=== PATIENT | male | born 1990 | race Caucasian/White ===

== ENCOUNTER 2020-05-31 09:05 | Emergency (ER) | payer OTHER, SELFPAY ==
--- NOTE | ~2020-05-31 | US_ITS ---
EXAMINATION: US scrotum doppler DATE: 05/31/2020 10:17 INDICATION: Scrotal pain and swelling TECHNIQUE: Testicular sonogram utilizing grayscale and Doppler COMPARISON: None. FINDINGS: The right testis measures 4.4 x 2.4 x 2.7 cm. The left testis measures 4.1 x 2.3 x 3.2 cm. Symmetric normal grayscale appearance to both testes. There is normal vascular flow to both testes. The right e pididymis is normal with normal vascular flow. The left epididymis is enlarged with heterogeneous dec reased echogenicity and increased vascular flow on color Doppler consistent with epididymitis. There is no varicocele or hydrocele. IMPRESSION: 1. Edematous and hyperemic left epididymis consistent with epididymitis. Reviewed, dictated and finalized at location A. [employer]
[2020-05-31 09:12] VITALS: BP 148/85; PULSE 62; RESP 14; TEMP 36.3; O2SAT 99
--- NOTE | 2020-05-31 09:21 | ED.MALEGU ---
HPI - Male Genitourinary General Chief complaint: Urogenital-Male Stated complaint: SCROTAL SWELLING Time Seen by Provider: 05/31/20 09:18 History of Present Illness HPI Narrative: Left testicle pain and swelling for the past 2 days. Moderate intensity. No change with position. No hematuria, dysuria. Seen at urgent care today and transferred here for further evaluation. Related Data Allergies Allergy/AdvReac Type Severity Reaction Status Date / Time No Known Allergies Allergy Verified 05/31/20 10:56 Review of Systems Review of Systems: All systems reviewed & are unremarkable except as noted in HPI and below Constitutional: Constitutional: Denies chills and Denies fever(s) Cardiovascular: Cardiovascular: Denies chest pain Respiratory: Respiratory: Denies dyspnea Gastrointestinal: Gastrointestinal: Denies abdominal pain, Denies nausea and Denies vomiting Genitourinary: Genitourinary: Denies hematuria, Denies genital lesions, Denies dysuria, Denies penile discharge, Reports testicular pain and Denies urinary frequency Musculoskeletal: Musculoskeletal: Denies back pain Neurologic: Denies numbness and Denies weakness [facility] Past Medical History Medical History (Updated 05/31/20 @ 17:46 by Jose Rafael Kennedy MD) Healthy adult male Social History Social History (Updated 05/31/20 @ 17:46 by Jose Rafael Kennedy MD) Smoking status: Never smoker Exam Const: General: healthy appearing, no acute distress and alert Orientation/consciousness: patient oriented x3 HENMT: Head: normal to inspection Neck: Neck: normal visual inspection and no lymphadenopathy Chest: Chest palpation & inspection: no tenderness Resp: Effort & Inspection: normal respiratory effort Auscultation: clear to auscultation bilaterally, no rales, no rhonchi and no wheezes Cardio: Jugular venous distension: no JVD Rate: regular rate Rhythm: regular rhythm Heart sounds: no murmurs GI: Inspection: non-distended GI Palp: Yes Soft to palpation and No Tenderness to palpation present (GI) : Penis: Yes normal penis Scrotum: scrotal swelling on the left and localized Testes: epididymal tenderness on the left Skin: General skin exam: normal color Neuro: General: patient oriented x3 and moves all extremities Speech: normal speech Extrem: General: no edema Psych: Appearance: well kempt Affect: normal affect Course Vital Signs Vital signs: Vital Signs Temperature 36.3 C L 05/31/20 09:12 Pulse Rate 62 05/31/20 09:12 Respiratory Rate 14 05/31/20 09:12 Blood Pressure 148/85 H 05/31/20 09:12 Pulse Oximetry 99 05/31/20 09:12 Temperature 36.3 C L 05/31/20 09:12 Pulse Rate 80 05/31/20 11:30 Respiratory Rate 12 05/31/20 11:30 Blood Pressure 134/70 05/31/20 11:30 Pulse Oximetry 99 05/31/20 11:30 MDM - Male Genitourinary MDM Narrative Medical decision making narrative: WBCs in urine. epididymitis on US. Most likely STD in this age group. Treated with Ceftriaxone and doxycycline. Differential Diagnosis Differential diagnosis: Likely urinary tract infection, inguinal hernia and other (epididymitis, hydrocele, vericocele) Medical Records Attestation: I reviewed the patient's medical records. Lab Data Attestation: I reviewed the patient's lab results. Labs: Lab Results 05/31/20 Range/Units 09:34 Urine Color Yellow (Yellow) Urine Appearance Clear (Clear) Urine pH 7.0 (5.0-9.0) Ur Specific [place] 1.026 (1.001-1.035) Urine Protein Negative (Negative) mg/dL Urine Glucose (UA) Negative (Negative) mg/dL Urine Ketones Negative (Negative) mg/dL Ur Blood (Man) Negative (Negative) Urine Nitrate Negative (Negative) Urine Bilirubin Negative (Negative) Urine Urobilinogen Negative (<2.0) mg/dL Leukocyte Esterase Rfl Negative (Negative) EDUARDO/UL Urine RBC 0-2 (0-2) /hpf Urine WBC 10-15 H /hpf Urine Bacteria Trace /hpf Imaging Data Radiologist's impres
[2020-05-31 09:55] LABS: Add Urine Microscopic? NO; Appearance Urine Clear (Clear); Bacteria Urine Trace /hpf; Bilirubin Urine Negative (Negative); Blood Urine Negative (Negative); Color Urine Yellow (Yellow); Glucose Urine UA Negative (Negative); Ketones Urine Negative (Negative); Leukocyte Esterase Ur Negative LEU/UL (Negative); Nitrate Urine Negative (Negative); Protein Urine Negative (Negative); RBC Urine 0-2 /hpf (0-2); Specific Grav Ur 1.026 (1.001-1.035); Urobilinogen Urine Negative mg/dL (<2.0)
[2020-05-31 10:49] VITALS: BP 136/77; PULSE 78; RESP 12; O2SAT 99
[2020-05-31] MEDS: cefTRIAXone 250 MG VIAL 500 MG IM (11:00)
[2020-05-31] MEDS: DOXYCYCLINE HYCLATE 100 MG TABLET PO (11:00)
[2020-05-31] MEDS: WATER, STERILE FOR INJECTION 10 ML VIAL XX ×2 (11:05→11:06)
[2020-05-31 11:30] VITALS: BP 134/70; PULSE 80; RESP 12; O2SAT 99
== END 2020-05-31 11:45 | disposition home or self-care (01) ==
PROVIDERS: Emergency Provider Emergency Medicine
DX: N45.1 Epididymitis (principal)
CPT/HCPCS: 76870; 81003; 87086; 93976; 96372; 99284; A9270; J0696